=== PATIENT | female | born 1945 | race Caucasian/White ===

== ENCOUNTER 2017-03-30 09:37 | Day surgery (SDC) | payer OTHER ==
[2017-03-30] MEDS ORDERED: IOTHALAMATE MEG (CONRAY) 50 ML VIAL IV ONE (11:28)
[2017-03-30] MEDS ORDERED: GLUCAGON,HUMAN RECOMBINANT 1 MG VIAL ONE (11:28)
[2017-03-30] MEDS ORDERED: PROPOFOL/EMULSION 500 MG/50 ML BOTTLE IV ONE (12:01)
[2017-03-30] MEDS ORDERED: LIDOCAINE 2% 5 ML SDV ONE (12:01)
--- NOTE | 2017-03-30 13:30 | GPN ---
[f rep st] PROCEDURE NOTE PREPROCEDURE DIAGNOSIS: Abnormal imaging and upper quadrant pain. POSTPROCEDURE DIAGNOSIS: Esophagitis, prominent bile duct. No evidence of choledocholithiasis or p ancreatic masses. PROCEDURE: Esophagogastroduodenoscopy with biopsy and endoscopic ultrasound including the esophagus , stomach, and duodenum 2nd portion. MEDICATIONS: Monitored anesthesia care. INDICATIONS: The patient is a 71-year-old female with history of autoimmune hepatitis, who has had intermittent right upper quadrant pain for the last 6 months. She had a slightly elevated alkaline phosphatase, which resulted in an ultrasound which showed a dilated bile duct. She has a history of cholecystectomy. She subsequently underwent an MRCP which showed a 3 mm tiny cyst in the pancreati c head/neck region, as well as a dilated bile duct. Choledocholithiasis could not be excluded. She is here for endoscopic ultrasound for evaluation for common bile duct stones and for further evalua tion of pancreatic cyst. DESCRIPTION OF PROCEDURE: The end-viewing endoscope was inserted into the esophagus, in the stomach and second portion of the duodenum. The esophagus showed LA grade A esophagitis at the GE junction , which was located at 35 cm from the incisors. There was no evidence of [place]. There was no cali dence of varices. The stomach is normal. Biopsies were taken from the gastric antrum to evaluate f or Helicobacter pylori using cold biopsy forceps. The duodenum and second portion was normal. Biop sies taken of the duodenum with cold biopsy forceps, for celiac disease. Next, the curvilinear echo endoscope was inserted into the esophagus, into stomach and second portion of the duodenum. Ultraso und views within the duodenum show a normal pancreatic duct and normal bile duct, tapered into the a mpulla. Bile duct becomes more prominent and dilated as it enters the common hepatic duct. There w as no evidence of choledocholithiasis. The remaining pancreas appears normal. The small pancreatic cyst seen on MRI was not seen on today's exam. There were no pancreatic masses. She does have sev eral enlarged lymph nodes in the gilbert hepatis, which are likely related to autoimmune hepatitis. IMPRESSION: 1. Prominent common bile duct without evidence of cholelithiasis. 2. Normal pancreas, including the pancreatic duct and the pancreatic parenchyma. 3. Prominent enlarged lymph nodes in the gilbert hepatis, likely related to her diagnosis of autoimmu ne hepatitis. RECOMMENDATION: 1. Advance diet as tolerated. 2. Discharge home with escort. 3. Follow up the final biopsy results. Results available within 10 days. 4. Recommend omeprazole 40 mg orally once per day for 2 months for her esophagitis. 5. Avoidance of NSAIDs. Thank you for allowing me to participate in the care of your patient. Please do not hesitate to nguyễn leticia with questions. /[id number]/MODL
== END 2017-03-30 14:05 | disposition home or self-care (01) ==
LOC: FSGY 09:37
PROVIDERS: ATTEND Internal Medicine Gastroenterology
PROC: 0DB98ZX Excision of Duodenum, Via Natural or Artificial Opening Endoscopic, Diagnostic (ICD-10-PCS; principal; 2017-03-30 11:30)
PROC: 0DB68ZX Excision of Stomach, Via Natural or Artificial Opening Endoscopic, Diagnostic (ICD-10-PCS; principal; 2017-03-30 11:30)
PROC: 0DJ08ZZ Inspection of Upper Intestinal Tract, Via Natural or Artificial Opening Endoscopic (ICD-10-PCS; principal; 2017-03-30 11:30)
DX: K20.9 Esophagitis, unspecified (principal); K83.8 Other specified diseases of biliary tract; R10.11 Right upper quadrant pain; R59.0 Localized enlarged lymph nodes; K75.4 Autoimmune hepatitis; E11.9 Type 2 diabetes mellitus without complications
CPT/HCPCS: J1610; J2704; Q9961

== ENCOUNTER 2017-04-26 10:31 | Inpatient (IN) | payer OTHER ==
[~2017-04-26 10:31] MED LIST: BACITRACIN 50,000 UNITS/10 ML SYR IRR ONE; BUPIVACAINE/EPI 0.25% 30 ML SDV ONE; CHLORHEXIDINE GLUC HIBICLENS 118 ML BTL TP ONE; THROMBIN (BOVINE) 5,000 UNIT VIAL TP ONE
[2017-04-26] MEDS ORDERED: ceFAZolin 2 GM/DEXTROSE 100 ML IV ONE (11:00)
[2017-04-26 11:56] LABS: % IMMATURE GRANULYOCYTES 0.2 % (0.0-1.1); ABSOLUTE IMMATURE GRANULOCYTES 0.01 10^3/uL (0.00-0.10); ADD DIFF? NO; ADD MORPH? NO; ADD SCAN? NO; ATYPICAL LYMPHOCYTE FLAG 0 (0-99); FRAGMENT RBC FLAG 0 (0-99); HEMATOCRIT 43.9 % (38.0-47.0); HEMOGLOBIN 14.5 g/dL (12.6-16.3); LEFT SHIFT FLG 0 (0-99); LIPEMIA HEMOLYSIS FLAG 80 (0-99); MEAN CELL HEMOGLOBIN 30.3 pg (27.9-34.1); MEAN CELL VOLUME 91.8 fL (81.5-99.8); MEAN PLATELET VOLUME 11.1 fL (8.7-11.7); PLATELET CLUMPS FLAG 0 (0-99); PLATELET COUNT 173 10^3/uL (150-400); RED BLOOD CELL COUNT 4.78 10^6/uL (4.18-5.33); RED CELL DISTRIBUTION WIDTH 12.7 % (11.5-15.2)
[2017-04-26 12:04] LABS: ANION GAP 9 mEq/L (8-16); CALCIUM 9.1 mg/dL (8.5-10.4); CARBON DIOXIDE 22 mEq/l (22-31); CHLORIDE 110 mEq/L (97-110); CREATININE 0.7 mg/dL (0.6-1.0); GLOMERULAR FILTRATION RATE > 60; GLUCOSE 75 mg/dL (70-100); POTASSIUM 3.8 mEq/L (3.5-5.2); SODIUM 141 mEq/L (134-144)
[2017-04-26] MEDS ORDERED: D50W 25 GM/50 ML SYR IVP ONE ×2 (15:16→15:45)
[2017-04-26] MEDS ORDERED: MAGNESIUM HYDROXIDE 30 ML UDCUP PO PRN (15:55)
[2017-04-26] MEDS ORDERED: TEMAZEPAM 15 MG CAP PO PRN (15:55)
[2017-04-26] MEDS ORDERED: ONDANSETRON DISINTEGRATING 4 MG TAB PO PRN (15:55)
[2017-04-26] MEDS ORDERED: DIAZEPAM 10 MG/2 ML SYR IVP PRN (15:55)
[2017-04-26] MEDS ORDERED: HYDROmorphONE/DILAUDID 1 MG/ML SYR IVP PRN (15:55)
[2017-04-26] MEDS ORDERED: morphINE PCA 30 MG/30 ML PCA IV PRN (15:55)
[2017-04-26] MEDS ORDERED: BISACODYL 10 MG SUPP PR PRN (15:55)
[2017-04-26] MEDS ORDERED: DIAZEPAM 5 MG TAB PO PRN (15:55)
[2017-04-26] MEDS ORDERED: NALOXONE HCL 0.4 MG/ML INJ IVP PRN (15:55)
[2017-04-26] MEDS ORDERED: diphenhydrAMINE 25 MG CAP PO PRN (15:55)
[2017-04-26] MEDS ORDERED: HYDROCODONE/APAP 10/325 TAB PO PRN (15:55)
[2017-04-26] MEDS ORDERED: ACETAMINOPHEN 325 MG TAB PO PRN (15:55)
[2017-04-26] MEDS ORDERED: POLYETHYLENE GLYCOL 3350 17 GM PKT PO PRN (15:55)
[2017-04-26] MEDS ORDERED: ONDANSETRON 4 MG/2 ML VIAL IVP PRN (15:55)
[2017-04-26] MEDS ORDERED: LACTULOSE 20 GM/30 ML UDCUP PO PRN (15:55)
[2017-04-26] MEDS ORDERED: METHOCARBAMOL 750 MG TAB PO PRN (15:55)
[2017-04-26] MEDS ORDERED: NS W/ 20 KCl/L 1,000 ML IV SCH (16:00)
[2017-04-26] MEDS ORDERED: LORazepam 2 MG/ML INJ IVP PRN (16:03)
[2017-04-26] MEDS ORDERED: LIDOCAINE 2% 100 MG/5 ML SYR ONE (16:08)
[2017-04-26] MEDS ORDERED: fentaNYL 100 MCG/2 ML INJ ONE (16:08)
[2017-04-26] MEDS ORDERED: DEXAMETHASONE 4 MG/ML VIAL ONE (16:08)
[2017-04-26] MEDS ORDERED: ONDANSETRON 4 MG/2 ML VIAL ONE (16:08)
[2017-04-26] MEDS ORDERED: REMIFENTANIL HCL 1 MG VIAL ONE (16:08)
[2017-04-26] MEDS ORDERED: HYDROmorphONE/DILAUDID 2 MG/ML INJ ONE (16:08)
[2017-04-26] MEDS ORDERED: PROPOFOL 200 MG/20 ML VIAL ONE (16:08)
[2017-04-26] MEDS ORDERED: ROCURONIUM 50 MG/5 ML VIAL ONE (16:08)
[2017-04-26] MEDS ORDERED: PROPOFOL/EMULSION 500 MG/50 ML BOTTLE IV ONE (16:08)
[2017-04-26] MEDS ORDERED: MIDAZOLAM 2 MG/2 ML VIAL ONE (16:20)
[2017-04-26] MEDS ORDERED: LR 1,000 ML IV ONE (17:00)
[2017-04-26] MEDS ORDERED: PHENYLEPHRINE HCL 100 MCG/ML SYR ONE (19:17)
[2017-04-26] MEDS ORDERED: DIAZEPAM 10 MG/2 ML SYR ONE (19:41)
--- NOTE | 2017-04-26 19:44 | SOAPPROG ---
SOAP Progress Note Assessment/Plan: Post Op Visit S: Awake and alert. NAD. Pt with expected neck pain O: AFVSS/PERRLA/EOMI no droop CN 2-12 grossly intact +lt touch neck soft and supple collar in place A/P: 71 yo female that is s/p ACDF C5-C7 -orders in place -pt seen by Dr Pandey -call with any questions or concerns -collar as directed 04/26/17 19:35 Objective: Laboratory Results 04/26/17 11:30 04/26/17 11:30 ICD10 Worksheet Patient Problems: Problems Problem Status Onset Cervical radiculitis Acute Cervical stenosis of spine Acute - ICD10 Problem Qualifiers (1) Cervical stenosis of spine (2) Cervical radiculitis
[2017-04-26] MEDS ORDERED: FAMOTIDINE 20 MG/NACL 50 ML IV SCH (21:00)
[2017-04-26] MEDS: FAMOTIDINE 20 MG TAB PO SCH (21:56)
[2017-04-26] MEDS: SENNOSIDES/DOCUSATE SODIUM TAB PO SCH (21:56)
[2017-04-27] MEDS: oxyCODONE IR 5 MG TAB PO PRN ×3 (01:07→14:11)
[2017-04-27] MEDS: metFORMIN HCL 850 MG TAB PO SCH ×2 (05:17→10:47)
--- NOTE | 2017-04-27 06:47 | GOP ---
[f rep st] OPERATIVE REPORT DATE OF OPERATION: 04/26/2017 SURGEON: Isaac Pandey MD LEGAL SERVICE SPECIALIST: Elizabeth Wagner NP and Marco Puckett PA-C. PREOPERATIVE DIAGNOSIS: Cervical stenosis, severe, C5-6, C6-7. C1-C2 facet arthropathy. POSTOPERATIVE DIAGNOSIS: Cervical stenosis, severe, C5-6, C6-7. C1-C2 facet arthropathy. PROCEDURE PERFORMED: Anterior cervical diskectomy with decompression and arthrodesis same level C5- 6, C6-7 (60944, 97142), placement of biomechanical intervertebral device C5-6, C6-7 (68832 x2), ante rior cervical instrumentation (96835) C5-C6-C7, microscope, same incision bone graft harvest, fluoro scopy some. FINDINGS: ESTIMATED BLOOD LOSS: 50 cc INDICATIONS: The patient is a mature female who had predominantly some symptoms in the left arm but was also having radiating pain into her head, and MRI demonstrated severe arthritis of the C1-C2 fa cet joint but she also had severe stenosis at C5-6 and C6-7. There was evidence of cord compression on MRI and I suggested surgery. I did not think observation was warranted and I suggested that she consider this. I believe, in the past, she also had seen my partner, and she agreed to proceed. T he risk of esophageal injury, carotid injury, recurrent laryngeal nerve injury, pseudoarthrosis, adj acent segment disease, and possible need for future surgery, as well as the possible need for eventu al treatment at C1-C2 was discussed. She understood the most threatening problem for spine was the problem at C5-6, C6-7, and she did want us to proceed. She knew there was risk of worsening neurolo gic condition with surgery but this risk was low. DESCRIPTION OF PROCEDURE: Patient was taken to the operating room, placed in a supine position. Ge neral anesthesia was begun. A midline shoulder roll was placed. Her head was kept neutral or occip ut. It was gently extended. She was sterilely prepped and draped in usual fashion. A transverse i ncision was made on the right side of the neck. The subcutaneous tissue was dissected using Bovie c autery through the platysma and we then simply used blunt and sharp dissection medial to the sternoc leidomastoid and lateral to the strap muscles, down to the prevertebral space. We inserted a needle at C5-6, shot a localizing x-ray, and then dissected the longus colli muscles off the spine at C5-6 and C6-7. There were really remarkably large osteophytes at C5-6, C6-7. We took time to drill the se away. We prepped the ventral surface of the vertebral bodies for placement of our plate later in the case. We harvested all this bone for autologous grafting purposes. We then placed distraction pins at C5-6, and under the microscope we removed the disk and the cartilaginous endplates. We dri lled and harvested subchondral bone for autologous grafting purposes. Coming off the inferior lip o f C5 was a large ridge of bone proceeding into the spinal canal creating stenosis and we drilled thi s bone and thinned it and harvested it for autologous grafting purposes. Under the scope, we then u sed a curette, opened the posterior longitudinal ligament and began decompressing the thecal sac. W e began at the midline and to the right of the midline where there was stenosis but as we worked our way to the patient's left-hand side, there was really remarkable left-sided stenosis. It was rathe r impressive with large protruding disk and osteophyte material really significantly indenting the d ura. We worked our way into the left side of the canal and continued decompressing up to the uncina te process and just above the C6 pedicle and then worked our way out along the C6 nerve root into th e neural foramen. A nice decompression was performed on the C6 root itself and we could visualize t he root nicely. We did the same on the patient's right-hand side. We then chose a 6 mm lordotic an atomic PTC cage manufactured by [employer] packed with autologous bone dust and inserted it at C5-6. A nice fit was obtained. We then moved our distraction pins and did the same thing at C6-7. Here there was stenosis but it was nowhere near as severe as what we found at C5-6. We decompressed bila terally into the neural foramen for the C7 roots and we were happy with the quality of our decompres idris. We chose another 6 mm anatomic PEEK cage fashioned to fit in the C6-7 space, packed with auto logous harvested bone dust. It was then inserted and we were happy with the position of the device. We removed our distraction pins and then chose a 37 mm cage. We increased the lordosis on the cag e and used 13 mm screws. Placed a single screw at C5. We did not place a screw at C7. We checked the length of the plate first with an x-ray. I was happy with the length of the plate. We then sabrina gwendolyn all the remaining screws at C5-C6 and C7 for a total of 6 screws. We shot a final x-ray and the screws all appeared well seated within each of the intended vertebral bodies without violation of t he surrounding disk spaces. Our implants were properly sized as were the screws. They were all loc ked according to company specification. We achieved meticulous hemostasis. Irrigated with antibiot ic saline solution, then placed the dysphagia study drug into the prevertebral space; 8 cc was used. We then closed the platysma with interrupted Vicryl sutures and the skin with interrupted Vicryl s utures. There were no complications. The patient tolerated the procedure well. COMPLICATIONS: None. INSTRUMENTATION USED: [employer] Zevo plate, 37 mm plate, 13 mm screws with a [employer] anatomic PTC cage, these are 6 mm cages. /[id number]/MODL
[2017-04-27 08:17] VITALS: RESP 16
[2017-04-27] MEDS ORDERED: ALLOPURINOL 100 MG TAB PO SCH (09:00)
[2017-04-27] MEDS ORDERED: ATORVASTATIN CALCIUM 20 MG TAB PO SCH (09:00)
--- NOTE | 2017-04-27 09:22 | NEUSURGPN ---
Date of Surgery: 04/26/17 Post Op Day: 1 Assessment/Plan: Assessment: 71 yo female that is s/p ACDF C5-C7 POD#1 Plan: -cervical x-rays today -PT/OT, Speech therapy to assess -pt seen by Dr Pandey -may discharge to home later today -call with any questions or concerns -hard collar as directed Subjective: Patient is doing well post op. Her right arm pain is gone. Minimal pain with swallowing. Objective: AFVSS/PERRLA/EOMI no droop CN 2-12 grossly intact +lt touch neck soft and supple collar in place Dressing CDI Urinary Catheter in Place: No - Physician Discussed Patient with : Dannie Patient Seen by : Dannie Neurosurgery Physical Exam - Vitals, I&O, Labs I and O 04/26/17 04/27/17 04/28/17 05:59 05:59 05:59 Intake Total 2131 Output Total 1450 Balance 681 Intake: Oral (ml) 500 IV Intake (ml) 1000 IV Infused (ml) 631 NS W/ 20 KCl/L 1,000 ml @ 531 75 mls/hr IV CONT SANDY Rx #:[id number] ceFAZolin 1 GM/DEXTROSE 100 50 ml @ 200 mls/hr IV Q8HRS SANDY Rx#:[id number] Output: Urine (ml) 900 Toilet 900 Estimated Blood Loss (ml) 50 Emesis (ml) 500 Other: Number of Voids Toilet 1 Vital Signs Temp Pulse Resp BP Pulse Ox 36.7 C 71 16 117/66 95 04/27/17 08:00 04/27/17 08:00 04/27/17 08:00 04/27/17 08:00 04/27/17 08:00 Laboratory Results 04/26/17 11:30 04/26/17 11:30 ICD10 Worksheet Patient Problems: Problems Problem Status Onset Cervical radiculitis Acute Cervical stenosis of spine Acute
[2017-04-27] MEDS: SENNOSIDES/DOCUSATE SODIUM TAB PO SCH (09:27)
[2017-04-27] MEDS: FAMOTIDINE 20 MG TAB PO SCH (09:27)
[2017-04-27 12:43] VITALS: BP 111/64; PULSE 60; TEMP 97.9; O2SAT 94
[2017-04-29] MEDS ORDERED: ENOXAPARIN 40 MG/0.4 ML SYR SC SCH (09:00)
== END 2017-04-27 15:08 | disposition home or self-care (01) | DRG 473 ==
LOC: F3N 10:31
PROVIDERS: ADMIT Neurological Surgery; ATTEND Neurological Surgery
PROC: 0PB30ZZ Excision of Cervical Vertebra, Open Approach (ICD-10-PCS; principal; 2017-04-26 12:30)
PROC: 01N10ZZ Release Cervical Nerve, Open Approach (ICD-10-PCS; principal; 2017-04-26 12:30)
PROC: 0RG20A0 Fusion of 2 or more Cervical Vertebral Joints with Interbody Fusion Device, Anterior Approach, Anterior Column, Open Approach (ICD-10-PCS; principal; 2017-04-26 12:30)
DX: M47.12 Other spondylosis with myelopathy, cervical region (principal); M48.02 Spinal stenosis, cervical region; E11.9 Type 2 diabetes mellitus without complications
CPT/HCPCS: 92610-GN; 97161-GP; 97165-GO; C1713; G8978-GP-CI; G8979-GP-CI; G8980-GP-CI; G8987-GO-CI; G8988-GO-CI; G8989-GO-CI; G8996-GN-CH; G8997-GN-CH; J0690; J1100; J1170; J2001; J2250; J2370; J2405; J2704; J3010